=== PATIENT | female | born 1995 | race Caucasian/White ===

== ENCOUNTER → 2019-11-13 | Outpatient (CLI) | payer OTHER, BC ==
[2019-11-13 10:05] LABS: BASOPHILS % (AUTO) 0 % (0-10); EOSINOPHILS # (AUTO) 0.2 10^3/uL (0.0-0.3); EOSINOPHILS % (AUTO) 2 % (0-10); HEMATOCRIT 37 % (35-52); HEMOGLOBIN 12.4 G/DL (11.5-16.0); LYMPHOCYTES # (AUTO) 1.5 X 10^3 (1.0-4.0); LYMPHOCYTES % (AUTO) 15 % (12-44); MEAN CORPUSCULAR HEMOGLOBIN 31 PG (25-34); MEAN CORPUSCULAR HGB CONC 34 G/DL (32-36); MEAN CORPUSCULAR VOLUME 91 FL (80-99); MEAN PLATELET VOLUME 9.1 FL (7.4-10.4); MONOCYTES # (AUTO) 0.6 X 10^3 (0.0-1.0); MONOCYTES % (AUTO) 6 % (0-12); NEUTROPHILS # (AUTO) 7.5 X 10^3 (1.8-7.8); NEUTROPHILS % (AUTO) 75 % (42-75); PLATELET COUNT 224 10^3/uL (130-400); RED CELL DISTRIBUTION WIDTH 14.1 % (10.0-14.5)
== END ==
LOC: LAB FS 09:15
PROVIDERS: ATTEND Family Medicine
DX: O26.899 Other specified pregnancy related conditions, unspecified trimester (principal)
CPT/HCPCS: 36415; 85025; 86780; 86850

== ENCOUNTER → 2019-11-27 | Outpatient (CLI) | payer OTHER, BC | LOC: LAB FS 08:45 | PROVIDERS: ATTEND Family Medicine | DX: O99.280 Endocrine, nutritional and metabolic diseases complicating pregnancy, unspecified trimester (principal); E03.9 Hypothyroidism, unspecified | CPT/HCPCS: 36415; 82950; 84443 ==

== ENCOUNTER 2019-12-01 08:38 | Outpatient (CLI) | payer OTHER, BC ==
[~2019-12-01] VITALS: Ht 170.2 cm; Wt 73.3 kg
--- NOTE | 2019-12-01 08:40 | NUR ---
GERTRUDE BAHENA presented to unit via AMBULATORY from REGISTRATION, accompanied by MOTHER , with c/o CONTRACTIONS. GERTRUDE BAHENA weighed, gowned, voided, and to bed. EFHM and TOCO applied, VS taken. GERTRUDE BAHENA oriented to bed controls, call light, TV, heat, and A/C controls.
[2019-12-01 08:50] VITALS: BP 118/68
--- NOTE | 2019-12-01 09:19 | NUR ---
THIS RN CALLS DR WIN WITH PT REPORT. PRENATALS UNAVAILABLE. FROM PT REPORT: EDC 02/03/20 MAKES HER 30 WEEKS AND 6 DAYS. PT STATES SHE STARTED FEELING DULL ACHEY PAIN IN LOWER BACK A FEW DAYS AGO. STATES SHE WENT TO THE ER, PER PT REPORT, THEY RAN HER URINE AND STATED THAT ALL SHE HAD WERE KETONES. PT STATES SHE HAD A FEVER THE LAST 2 DAYS OVER 100 F. TODAY IT IS 98.6F UPON ARRIVAL. PT DENIES N/V/D. PT STATES PAIN BEGAN IN HER BACK AND LOWER ABDOMEN THIS MORNING AT 0515 THAT WERE INTENSE AND WOULD COME AND GO LIKE CONTRACTIONS THEREFORE PT CAME TO OB. PT HAS HAD OCCASIONAL UC PER TOCO SINCE ON MONITOR, WITH UTERINE IRRITABILITY. REACTIVE FHT. FEELING BABY MOVEMENT. PT STATES HER WATER INTAKE HAS BEEN POOR BECAUSE "WATER JUST HASNT TASTED GOOD THIS ". URINE DIPSTICK RESULTS READ TO DR WIN. RN HAS NOT COMPLETED SVE, WANTED TO SPEAK WITH DR SOLARES. RN HAS GIVEN THE PT WATER AND GIVEN INSTRUCTIONS TO HYDRATE. DR WIN ORDERS FOR URINALYSIS, BILAT RENAL US FOR POSSIBLE KIDNEY STONE, AND WANTS PT TO DRINK ATLEAST 1 L OF WATER WHILE IN OB - IF PT IS UNABLE TO DRINK WATER PO, THEN WE CAN DO IV FLUIDS. THIS RN HAS PLACED ORDERS AND UPDATED PT ON PLAN OF CARE.
--- NOTE | 2019-12-01 09:40 | NUR ---
US at bedside for bilat renal us for possible kidney stone evaluation
[2019-12-01 09:44] LABS: CLARITY,URINE SL CLOUDY; COLOR,URINE YELLOW; GLUCOSE, URINE (UA) NEGATIVE (NEGATIVE); KETONES,URINE 3+ (NEGATIVE); LEUKOCYTE ESTERASE ,URINE NEGATIVE (NEGATIVE); NITRITE,URINE NEGATIVE (NEGATIVE); PH,URINE 6.5 (5-9); PROTEIN,URINE 2+ (NEGATIVE)
[2019-12-01 10:02] LABS: BACTERIA,URINE NEGATIVE /HPF; BILIRUBIN,URINE 1+ (NEGATIVE); WBC,URINE RARE /HPF
--- NOTE | 2019-12-01 10:30 | NUR ---
DR WIN UPDATED ON URINALYSIS RESULTS. PT STATES FEELING ABOUT THE SAME CO SHARP CRAMPING PAIN LOWER ABDOMEN. OCCASIONAL UC MONITORED WITH TOCO, RN WILL READJUST TOCO TO MAKE SURE. PT STATES SHE HAS NOT EATEN TODAY AND WANTS TO TRY TO EAT, STATES SHE IS HAVING A HARD TIME DRINKING WATER. DR WIN ORDERS FOR RN TO GO AHEAD TO START IV AND GIVE IV FLUIDS.
[2019-12-01] MEDS: D5 LR IV SOLUTION 1,000 ML IV SCH ×2 (11:13→13:00)
--- NOTE | 2019-12-01 11:30 | NUR ---
dr jacobson updated on pt report. uc 3.5-6 min sve by this rn closed and thick. no new orders
[2019-12-01 13:36] LABS: BASOPHILS % (AUTO) 0 % (0-10); EOSINOPHILS % (AUTO) 0 % (0-10); HEMATOCRIT 33 % (35-52); HEMOGLOBIN 11.3 G/DL (11.5-16.0); LYMPHOCYTES % (AUTO) 9 % (12-44); MEAN CORPUSCULAR HEMOGLOBIN 31 PG (25-34); MEAN CORPUSCULAR HGB CONC 34 G/DL (32-36); MEAN CORPUSCULAR VOLUME 90 FL (80-99); MEAN PLATELET VOLUME 9.5 FL (7.4-10.4); MONOCYTES # (AUTO) 0.5 X 10^3 (0.0-1.0); MONOCYTES % (AUTO) 5 % (0-12); NEUTROPHILS # (AUTO) 10.1 X 10^3 (1.8-7.8); NEUTROPHILS % (AUTO) 87 % (42-75); PLATELET COUNT 197 10^3/uL (130-400); RED CELL DISTRIBUTION WIDTH 14.3 % (10.0-14.5); WHITE BLOOD COUNT 11.6 10^3/uL (4.3-11.0)
--- NOTE | 2019-12-01 13:40 | NUR ---
dr jacobson updated on pt report. Us results given to dr. LAO called US and tech stated that it has been dictated and shows bilateral hydronephrosis. cbc and cmp orders by dr jacobson.
[2019-12-01 13:51] LABS: BAND NEUTROPHILS 8 %; BASOPHILS % (MANUAL) 0 %; EOSINOPHILS % (MANUAL) 1 %; LYMPHOCYTES % (MANUAL) 8 %; MONOCYTES % (MANUAL) 4 %; NEUTROPHILS % (MANUAL) 79 %; RBC MORPH NORMAL
[2019-12-01 13:57] LABS: ALANINE AMINOTRANSFERASE 20 U/L (0-55); ALKALINE PHOSPHATASE 60 U/L (40-136); BILIRUBIN,TOTAL 0.3 MG/DL (0.1-1.0); BUN/CREATININE RATIO 5; CALCIUM 8.4 MG/DL (8.5-10.1); CARBON DIOXIDE 19 MMOL/L (21-32); CHLORIDE 108 MMOL/L (98-107); CREATININE SERUM 0.55 MG/DL (0.60-1.30); GFR ESTIMATED > 60; GLUCOSE 135 MG/DL (70-105); SODIUM 135 MMOL/L (135-145); TOTAL PROTEIN 5.6 GM/DL (6.4-8.2)
[2019-12-01] MEDS ORDERED: KCL 20 MEQ TAB (K-DUR) PO NR (14:07)
--- NOTE | 2019-12-01 14:45 | NUR ---
lab results given to dr jacobson. order receivd to admin KCl 40 meq once PO. pt states she feels better. uc spread out significantly, occasional uc now. states pt may dc to home. pt updated on plan. questions answered.
--- NOTE | 2019-12-01 15:00 | NUR ---
this rn gives and explains discharge instructions to pt. DC iv. questions answered.
--- NOTE | 2019-12-01 15:30 | Diagnostic Imaging Report ---
PROCEDURE: US Renal Bilateral. TECHNIQUE: Multiple real-time grayscale images were obtained over the kidneys in various projections bilaterally. INDICATION: Hematuria and abdominal pain. FINDINGS: Right kidney measures 11.1 x 4.1 x 5.3 cm and the left kidney measures 11.3 x 4.9 x 5.4 cm. Cortical thickness and echogenicity is normal bilaterally. Renal pelves are slightly prominent bilaterally. No hydronephrosis is identified. Bilateral ureteral jets are visualized. IMPRESSION: Prominent renal pelves bilaterally. The study is otherwise unremarkable. Dictated by: Dictated on workstation # [id number]
--- NOTE | 2019-12-02 08:38 | Physician Query-Final Dx ---
Clinic Account Progress/Dx Physician Query: Please give diagnosis Please include # weeks gestation Date of Service Dec 01, 2019 at 08:38 CARRIE JOHNSON Dec 02, 2019 08:37
== END 2019-12-01 15:00 | disposition home or self-care (01) ==
LOC: WSo 08:38 → LDRP 08:40 → WSo 15:00
PROVIDERS: ATTEND Family Medicine
DX: O62.9 Abnormality of forces of labor, unspecified (principal); O99.89 Other specified diseases and conditions complicating pregnancy, childbirth and the puerperium; R31.9 Hematuria, unspecified; Z3A.31 31 weeks gestation of pregnancy
CPT/HCPCS: 36415; 76770; 80053; 81000; 85007; 85027; 96360; 96361; 99213

== ENCOUNTER → 2020-01-09 | Outpatient (CLI) | payer OTHER, BC | LOC: LABNPT 14:38 | PROVIDERS: ATTEND Family Medicine | DX: Z34.80 Encounter for supervision of other normal pregnancy, unspecified trimester (principal); Z3A.00 Weeks of gestation of pregnancy not specified | CPT/HCPCS: 87081 ==

== ENCOUNTER 2020-01-27 05:50 | Inpatient (IN) | payer OTHER, BC ==
[2020-01-27] VITALS (25 sets, daily range): BP systolic 92–131; BP diastolic 54–82
[~2020-01-27] VITALS: Ht 170.2 cm; Wt 79.0 kg
--- OUTSIDE RECORDS SUMMARY | 2020-01-27 05:55 | XMS REPORT | Continuity of Care Document ---
Author Organization Unknown Address Unknown Phone Unavailable Allergies Active Description Code Type Severity Reaction Onset Reported/Identified Relationship to Patient Clinical Status Yes Sulfa (Sulfonamide Antibiotics) [id number] Drug Allergy Moderate Rash 2019 Medications There is no data. Problems Date Dx Coded Attending Type Code Diagnosis Diagnosed By 11/15/2019 MARTHA WIN MD, Ot O26.899 OTH RELATED CONDITIONS, UNSPEC 11/27/2019 MARTHA WIN MD, Ot O26.899 OTH RELATED CONDITIONS, UNSPEC 11/28/2019 MARTHA WIN MD, Ot E03 .9 HYPOTHYROIDISM, UNSPECIFIED 11/28/2019 MARTHA WIN MD Ot O99.280 ENDO, NUTRITIONAL AND METAB DISEASES COM 12/01/2019 MARTHA WIN MD Ot O62 .9 ABNORMALITY OF FORCES OF LABOR, UNSPECIF 12/01/2019 MARTHA WIN MD Ot O99.89 OTH DISEASES AND CONDITIONS COMPL PREG/C 12/01/2019 MARTHA WIN MD Ot R31 .9 HEMATURIA, UNSPECIFIED 12/01/2019 MARTHA WIN MD Ot Z3A.31 31 WEEKS GESTATION OF 12/03/2019 MARTHA WIN MD Ot O62 .9 ABNORMALITY OF FORCES OF LABOR, UNSPECIF 12/03/2019 MARTHA WIN MD Ot O99.89 OTH DISEASES AND CONDITIONS COMPL PREG/C 12/03/2019 MARTHA WIN MD Ot R31 .9 HEMATURIA, UNSPECIFIED 12/03/2019 MARTHA WIN MD Ot Z3A.31 31 WEEKS GESTATION OF 12/17/2019 MARTHA WIN MD Ot E03 .9 HYPOTHYROIDISM, UNSPECIFIED 12/17/2019 MARTHA WIN MD Ot O99.280 ENDO, NUTRITIONAL AND METAB DISEASES COM 12/25/2019 MARTHA WIN MD Ot E03 .9 HYPOTHYROIDISM, UNSPECIFIED 12/25/2019 MARTHA WIN MD, Ot O99.280 ENDO, NUTRITIONAL AND METAB DISEASES COM 01/16/2020 AUDELIA SOLORIO MARTHAMICHELE Neely Ot Z34.80 ENCOUNTER FOR SUPRVSN OF NORMAL PREGNANC 01/16/2020 AUDELIA SOLORIO MARTHAMICHELE Neely Ot Z3A.00 WEEKS OF GESTATION OF NOT SPEC 01/23/2020 MARTHA WIN MD, Ot Z34.80 ENCOUNTER FOR SUPRVSN OF NORMAL PREGNANC 01/23/2020 MARTHA WIN MD, Ot Z3A.00 WEEKS OF GESTATION OF NOT SPEC Procedures There is no data. Results Test Result Range TSH w/ FREE T4 - 02/12/19 10:00 TSH 8.03 mIU/L NRG T4, FREE 0.9 ng/dL 0.8-1.8 TSH - 03/25/19 09:35 TSH 5.89 mIU/L NRG TSH - 05/08/19 00:00 TSH 2.87 mIU/L NRG CBC - 06/16/19 11:04 WHITE BLOOD CELL COUNT 8.4 Thousand/uL 3 .8-10.8 RED BLOOD CELL COUNT 4.32 Million/uL 3.8 0-5.10 HEMOGLOBIN 13.0 g/dL 11.7-15.5 HEMATOCRIT 38.9 % 35.0-45.0 MCV 90.0 fL 80.0-100.0 MCH 30.1 pg 27.0-33.0 MCHC 33.4 g/dL 32.0-36.0 RDW 12.8 % 11.0-15.0 PLATELET COUNT 288 Thousand/uL 140-400 MPV 9.4 fL 7.5-12.5 ABSOLUTE NEUTROPHILS 5258 cells/uL 1500- 7800 ABSOLUTE LYMPHOCYTES 2008 cells/uL 850-3 900 ABSOLUTE MONOCYTES 756 cells/uL 200-950 ABSOLUTE EOSINOPHILS 336 cells/uL 15-500 ABSOLUTE BASOPHILS 42 cells/uL 0-200 NEUTROPHILS 62.6 % NRG LYMPHOCYTES 23.9 % NRG MONOCYTES 9.0 % NRG EOSINOPHILS 4.0 % NRG BASOPHILS 0.5 % NRG BLOOD TPYE/RH FACTOR - 06/16/19 11:04 ABO GROUP A NRG RH TYPE RH(D) NEGATIVE NRG ANTIBODY SCREEN - 06/16/19 11:04 ANTIBODY SCREEN, RBC W/REFL ID, TITER AND AG NO ANTIBODIES DETECTED NRG SYPHILIS (RPR W/ REFLEX CONFIRMATION) - 06/16/19 11:04 RPR (DX) W/REFL TITER AND CONFIRMATORY TESTING NON-REACTIVE NON-REACTIVE HEP B SURFACE ANTIGEN - 06/16/19 11:04 HEPATITIS B SURFACE ANTIGEN NON-REACTIVE NON-REACTIVE TSH - 06/16/19 11:04 TSH 4.25 mIU/L NRG CULTURE, URINE - 06/16/19 11:04 CULTURE, URINE, ROUTINE SEE NOTE NRG GC/CHLAMYDIA (SWAB OR URINE)-RAPID - 14:55 CHLAMYDIA TRACHOMATIS RNA, TMA NOT DETECTED NOT DETECTED NEISSERIA GONORRHOEAE RNA, TMA NOT DETECTED NOT DETECTED COMMENT NRG Complete blood count (CBC) with automate d white blood cell (WBC) differential - 11/13/19 09:53 Blood leukocytes automated count (number/volume) 10.0 10*3/uL 4.3-11.0 Blood erythrocytes automated count (number/volume) 4.05 10*6/uL 4.35-5.85 Venous blood hemoglobin measurement (mass/volume) 12.4 g/dL 11.5-16.0 Blood hematocrit (volume fraction) 37 % 35-52 Automated erythrocyte mean corpuscular volume 91 [ foz_us] 80-99 Automated erythrocyte mean corpuscular h emoglobin (mass per erythrocyte) 31 pg 25-34 Automated erythrocyte mean corpuscular h emoglobin concentration measurement (mass/volume) 34 g/dL 32-36 Automated erythrocyte distribution width ratio 14. 1 % 10.0- 14.5 Automated blood platelet count (count/volume) 224 10*3/uL 130-400 Automated blood platelet mean volume measurement 9.1 [foz_us] 7.4-10.4 Automated blood neutrophils/100 leukocytes 75 % 42-75 Automated blood lymphocytes/100 leukocytes 15 % 12-44 Blood monocytes/100 leukocytes 6 % 0-12 Automated blood eosinophils/100 leukocytes 2 % 0-10 Automated blood basophils/100 leukocytes 0 % 0-10 Blood neutrophils automated count (number/volume) 7.5 10*3 1.8-7.8 Blood lymphocytes automated count (number/volume) 1.5 10*3 1.0-4.0 Blood monocytes automated count (number/volume) 0. 6 10*3 0.0-1.0 Automated eosinophil count 0.2 10*3/uL 0 .0-0.3 Automated blood basophil count (count/volume) 0.0 10*3/uL 0.0-0.1 Blood group antibody screen - 11/13/19 0 9:53 Blood group antibody screen NEGATIVE NR G Serum reagin antibody assay (units/volum e) by RPR - 11/13/19 09:53 Serum reagin antibody assay (units/volume) by RPR Non-Reactive Non-Reactive Complete urinalysis with reflex to cultu re - 12/01/19 09:00 Urine color determination YELLOW NRG Urine clarity determination SL CLOUDY N RG Urine pH measurement by test strip 6.5 5-9 Specific gravity of urine by test strip 1.025 1.016-1.022 Urine protein assay by test strip, semi-quantitative 2+ NEGATIVE Urine glucose detection by automated test strip NE GATIVE NEGATIVE Erythrocytes detection in urine sediment by light micr oscopy TRACE-I NEGATIVE Urine ketones detection by automated test strip 3+ NEGATIVE Urine nitrite detection by test strip NEGATIVE NEGATIVE Urine total bilirubin detection by test strip 1+ NEGATIVE Urine urobilinogen measurement by automated test strip (mass/volume) 1.0 mg/dL < = 1.0 Urine leukocyte esterase detection by dipstick NEG ATIVE NEGATIVE Automated urine sediment erythrocyte cou nt by microscopy (number/high power field) [HPF] NRG Automated urine sediment leukocyte count by microscopy (number/high power field) RARE NRG Bacteria detection in urine sediment by light microsco py NEGATIVE NRG Squamous epithelial cells detection in u rine sediment by light microscopy 2-5 NRG Crystals detection in urine sediment by light microsco py NONE NRG Casts detection in urine sediment by light microscopy NONE NRG Mucus detection in urine sediment by light microscopy MODERATE NRG Complete urinalysis with reflex to culture NO NRG Blood CBC with ordered manual differenti al panel - 12/01/19 13:25 Blood leukocytes automated count (number/volume) 11.6 10*3/uL 4.3-11.0 Blood erythrocytes automated count (number/volume) 3.71 10*6/uL 4.35-5.85 Venous blood hemoglobin measurement (mass/volume) 11.3 g/dL 11.5-16.0 Blood hematocrit (volume fraction) 33 % 35-52 Automated erythrocyte mean corpuscular volume 90 [ foz_us] 80-99 Automated erythrocyte mean corpuscular h emoglobin (mass per erythrocyte) 31 pg 25-34 Automated erythrocyte mean corpuscular h emoglobin concentration measurement (mass/volume) 34 g/dL 32-36 Automated erythrocyte distribution width ratio 14. 3 % 10.0- 14.5 Automated blood platelet count (count/volume) 197 10*3/uL 130-400 Automated blood platelet mean volume measurement 9.5 [foz_us] 7.4-10.4 Automated blood neutrophils/100 leukocytes 87 % 42-75 Automated blood lymphocytes/100 leukocytes 9 % 12-44 Blood monocytes/100 leukocytes 4 % NRG Automated blood eosinophils/100 leukocytes 0 % 0-10 Automated blood basophils/100 leukocytes 0 % 0-10 Blood neutrophils automated count (number/volume) 10.1 10*3 1.8-7.8 Blood lymphocytes automated count (number/volume) 1.0 10*3 1.0-4.0 Blood monocytes automated count (number/volume) 0. 5 10*3 0.0-1.0 Automated eosinophil count 0.0 10*3/uL 0 .0-0.3 Automated blood basophil count (count/volume) 0.0 10*3/uL 0.0-0.1 Manual blood segmented neutrophils/100 leukocytes 79 % NRG Blood band neutrophils/100 leukocytes 8 % NRG Manual blood lymphocytes/100 leukocytes 8 % NRG Manual eosinophils/100 leukocytes in nose 1 % NRG Manual blood basophils/100 leukocytes 0 % NRG Blood erythrocyte morphology finding identification N[facility]AL [facility] Comprehensive metabolic panel - 12/01/19 13:25 Serum or plasma sodium measurement (moles/volume) 135 mmol/L 135-145 Serum or plasma potassium measurement (moles/volume) 3.0 mmol/L 3.6-5.0 Serum or plasma chloride measurement (moles/volume) 108 mmol/L 98-107 Carbon dioxide 19 mmol/L 21-32 Serum or plasma anion gap determination (moles/volume) 8 mmol/L 5-14 Serum or plasma urea nitrogen measurement (mass/volume ) 3 mg/dL 7-18 Serum or plasma creatinine measurement (mass/volume) 0.55 mg/dL 0.60-1.30 Serum or plasma urea nitrogen/creatinine mass ratio 5 NRG Serum or plasma creatinine measurement w ith calculation of estimated glomerular filtration rate > NRG Serum or plasma glucose measurement (mass/volume) 135 mg/dL 70-105 Serum or plasma calcium measurement (mass/volume) 8.4 mg/dL 8.5-10.1 Serum or plasma total bilirubin measurement (mass/volu me) 0.3 mg/dL 0.1-1.0 Serum or plasma alkaline phosphatase maximo surement (enzymatic activity/volume) 60 U/L 40-136 Serum or plasma aspartate aminotransfera se measurement (enzymatic activity/volume) 18 U/L 5-34 Serum or plasma alanine aminotransferase measurement (enzymatic activity/volume) 20 U/L 0-55 Serum or plasma protein measurement (mass/volume) 5.6 g/dL 6.4-8.2 Serum or plasma albumin measurement (mass/volume) 3.0 g/dL 3.2-4.5 CALCIUM CORRECTED 9.2 mg/dL 8.5-10.1 [id number] - 12/01/19 13:25 [id number] SPECIMEN AVAILABLE NRG Encounters ACCT No. Visit Date/Time Discharge Status Pt. Type Provider Facility Loc./Unit Complaint [id number] 09/30/2019 10:00:00 09/30/2019 23:59: 59 CLS Outpatient MARTHA WIN [facility] [id number] 07/14/2019 14:20:00 Document Registration [id number] 2019 14:20:00 Document Registration [id number] 05/08/2019 11:00:00 Document Registration [id number] 03/25/2019 09:30:00 Document Registration [id number] 02/12/2019 09:45:00 Document Registration [id number] 01/09/2020 14:38:00 23:59:59 CLS Outpatient MARTHA WIN MD [facility] LABNPT Z34.80 [id number] 12/01/2019 08:38:00 15:00:00 DIS Outpatient MARTHA WIN MD [facility] WSo CONTRACTIONS [id number] 11/27/2019 08:45:00 23:59:59 CLS Outpatient MARTHA WIN MD [facility] LAB FS E03.9 Z34.80 [id number] 11/13/2019 09:15:00 020 23:59:59 CLS Outpatient AUDELIA SOLORIO, MARTHA Neely [facility] LAB FS Z36.9 O26.889 [id number] 01/27/2020 06:00:00 P EN Preadmit AUDELIA SOLORIO, MARTHA SPENCE
--- NOTE | 2020-01-27 06:00 | NUR ---
GERTRUDE BAHENA presented to unit via AMBULATION from ED, accompanied by S/O/ BOTH WEARING MEDICAL FACE MASKS, with c/o INDUCTION. GERTRUDE BAHENA weighed, gowned, voided, and to bed. EFHM and TOCO applied, VS taken. GERTRUDE BAHENA oriented to bed controls, call light, TV, heat, and A/C controls.
[2020-01-27] MEDS ORDERED: D5 LR IV SOLUTION 1,000 ML IV ONE (06:26)
[2020-01-27] MEDS ORDERED: D5 LR IV SOLUTION 1,000 ML IV SCH (06:41)
[2020-01-27] MEDS ORDERED: MINERAL OIL CONCENTRATE 99.9% 15 ML UDC TOP PRN (06:45)
[2020-01-27 06:51] LABS: BASOPHILS % (AUTO) 0 % (0-10); EOSINOPHILS # (AUTO) 0.1 10^3/uL (0.0-0.3); EOSINOPHILS % (AUTO) 1 % (0-10); HEMATOCRIT 37 % (35-52); HEMOGLOBIN 12.7 G/DL (11.5-16.0); LYMPHOCYTES # (AUTO) 1.8 X 10^3 (1.0-4.0); LYMPHOCYTES % (AUTO) 20 % (12-44); MEAN CORPUSCULAR HEMOGLOBIN 30 PG (25-34); MEAN CORPUSCULAR HGB CONC 34 G/DL (32-36); MEAN CORPUSCULAR VOLUME 88 FL (80-99); MEAN PLATELET VOLUME 10.4 FL (7.4-10.4); MONOCYTES # (AUTO) 0.8 X 10^3 (0.0-1.0); MONOCYTES % (AUTO) 9 % (0-12); NEUTROPHILS # (AUTO) 6.7 X 10^3 (1.8-7.8); NEUTROPHILS % (AUTO) 71 % (42-75); PLATELET COUNT 233 10^3/uL (130-400); RED CELL DISTRIBUTION WIDTH 14.8 % (10.0-14.5); WHITE BLOOD COUNT 9.5 10^3/uL (4.3-11.0)
--- NOTE | 2020-01-27 07:28 | NUR ---
Dr Oconnell called, orders for pitocin rec'd. Plan for Dr. Beckett to come AROM pt.
[2020-01-27] MEDS ORDERED: OXYTOCIN PRE-MIX DRIP 500 ML IV SCH (07:30)
[2020-01-27] MEDS ORDERED: fentaNYL 2 mcg/ml BUPIVA 0.125 100 ML ONE (08:32)
--- NOTE | 2020-01-27 08:36 | NUR ---
Alisia Parry CRNA here for epidural placement. Procedure explained, consent reviewed and signed by anesthesia. Questions answered to patient's satisfaction. Time out taken to verify correct patient/procedure. Patient up to side of bed, assisted into sitting position. Betadine prep done x3 and sterile drape applied. Local done, see anesthesia record. Test dose given, see anesthesia record for drug and dosage. Epidural catheter secured in place. Epidural placement complete. Assisted back into bed, monitors adjusted. Epidural dosed, see anesthesia record. Epidural of Sufenta/Bupvicaine @12cc/hr stated per pump. Patient tolerated procedure well.
[2020-01-27] MEDS ORDERED: LIDOCAINE PF 2% 5 ML (XYLOCAINE) VIAL ONE (08:49)
[2020-01-27] MEDS ORDERED: fentaNYL INJECTION 100 MCG/2 ML AMP ONE (08:49)
[2020-01-27] MEDS ORDERED: BUPIVACAINE 0.25% 30 ML (SENSORCAINE) VIAL ONE (08:49)
[2020-01-27] MEDS ORDERED: LACTATED RINGERS 1,000 ML IV SCH (09:18)
[2020-01-27] MEDS ORDERED: EPIDURAL (fentaNYL 2 MCG/ML BUPIVA 0.125%)100 ML BAG EPI PRN (09:30)
[2020-01-27] MEDS ORDERED: diphenhydrAMINE 50 MG/ML INJ (BENADRYL) IV PRN (09:30)
[2020-01-27] MEDS ORDERED: ONDANSETRON 4 MG/2 ML (SDV) Z0FRAN IV PRN (09:30)
[2020-01-27] MEDS ORDERED: NALOXONE 0.4 MG/ML 1 ML (NARCAN) VIAL IV PRN (09:30)
[2020-01-27] MEDS ORDERED: LIDOCAINE/EPI 2% 1:200,00 (XYLOCAINE) 10 ML VIAL ONE (10:26)
--- NOTE | 2020-01-27 10:28 | History & Physical-OB ---
OB - Chief Complaint & HPI Date/Time Date of Admission: Date of Admission: Jan 27, 2020 at 05:50 Date seen by a Provider: Jan 27, 2020 Time Seen by a Provider: 10:26 Chief Complaint/History OB-Reason for Admission/Chief: Induction of Labor Hx : 2 Hx Para: 1 Expected Date of Delivery: Feb 03, 2020 Gestational Age in Weeks: 39 Gestational Age in Days: 0 Admission Nurse Assessment Rev: Yes Allergies and Home Medications Allergies Coded Allergies: Sulfa (Sulfonamide Antibiotics) (Verified Allergy, Intermediate, Rash, 12/01/19) Home Medications No Active Prescriptions or Reported Meds Patient Home Medication List Home Medication List Reviewed: Yes OB - History Hx of Present Ultrasounds: Normal mid trimester US Obstetrical Complications: None Medical Complications: None Delivery History Adverse Rxn to Tranfusion: No (n/a) Patient Past Medical History hypothyroidism Social History/Family History HIV/AIDS: No Recent Infectious Disease Expo: No Sexually Transmitted Disease: No Alcohol Use: Denies Use Recreational Drug Use: No 2nd Hand Smoke Exposure: No Immunizations Hepatitis A: Yes Hepatitis B: Yes Date of Influenza Vaccine: Aug 18, 2019 OB - Admission Exam Physical Exam Vitals: Vital Signs 01/27/20 06:59 Temp 36.8 Pulse 78 Resp 18 B/P (MAP) 107/75 (86) O2 Delivery Room Air HEENT: NCAT Heart: Rhythm Normal Lungs: Clear Abdomen: Gravid Extremities: Normal Reflexes: Normal Cervical Dilatation: 7cm Effacement: 100% Station: -3 Membranes: Ruptured Amniotic Fluid: Clear Heart Rate: 130's Accelerations: Accelerations Present Decelerations: Early Decelerations Short Term Variability: Present Longterm Variability: Average (6-25) Contractions on Admission: < 5 Minutes Apart Labs Laboratory Tests Test 01/27/20 06:25 Range/Units White Blood Count 9.5 4.3-11.0 10^3/uL Red Blood Count 4.25 L 4.35-5.85 10^6/uL Hemoglobin 12.7 11.5-16.0 G/DL Hematocrit 37 35-52 % Mean Corpuscular Volume 88 80-99 FL Mean Corpuscular Hemoglobin 30 25-34 PG Mean Corpuscular Hemoglobin Concent 34 32-36 G/DL Red Cell Distribution Width 14.8 H 10.0-14.5 % Platelet Count 233 130-400 10^3/uL Mean Platelet Volume 10.4 7.4-10.4 FL Neutrophils (%) (Auto) 71 42-75 % Lymphocytes (%) (Auto) 20 12-44 % Monocytes (%) (Auto) 9 0-12 % Eosinophils (%) (Auto) 1 0-10 % Basophils (%) (Auto) 0 0-10 % Neutrophils # (Auto) 6.7 1.8-7.8 X 10^3 Lymphocytes # (Auto) 1.8 1.0-4.0 X 10^3 Monocytes # (Auto) 0.8 0.0-1.0 X 10^3 Eosinophils # (Auto) 0.1 0.0-0.3 10^3/uL Basophils # (Auto) 0.0 0.0-0.1 10^3/uL OB - Assessment/Plan/Diagnosis Assessment Assessment: induction of labor Admission Dx Elective induction of labor at 39 0/7 wga. Admission Status: Inpatient Order (span 2 midnights) Reason for Inpatient Admission: Induction of labor. Plan Induction Method: per Pitocin Protocol Other Plan Pain controlled with epidural. GBS negative. MARTHA WIN MD Jan 27, 2020 10:28
[2020-01-27] MEDS ORDERED: WITCH HAZEL(TUCKS) 40 EA JAR TOP PRN (11:15)
[2020-01-27] MEDS ORDERED: MEASLES,MUMPS,RUBELLA 1 EA INJ SQ ONE (11:15)
[2020-01-27] MEDS ORDERED: TETANUS,DIPTH,PERTUSS P/F (BOOSTRIX) 0.5 ML VIAL IM ONE (11:15)
[2020-01-27] MEDS ORDERED: BENZOCAINE/MENTHOL (DERMOPLAST) 60 ML CAN TP PRN (11:15)
--- NOTE | 2020-01-27 11:28 | OB Labor & Delivery Record ---
Vag Delivery Note Vag Delivery Note Date of Delivery: 01/27/20 Preoperative Diagnosis: Tracy Donovan is a (24 /Para 2 / 1, Gestational Age (wks)39with [0 days] Postoperative Diagnosis: Same Surgeon: MARTHA WIN Candy Waffle Assembler: [none] Anesthesia: [epidural] Delivery Type: [] Findings: [] Viable [female] infant, apgars [8/9], weight [7 pounds 3 ounces] Lacerations: Intact placenta with 3 vessel cord. Nuchal cord times 1. Estimated Blood Loss: [200] ml Complications: None Condition: Stable Description of Procedure: The patient is a 24 year old female who presented [for induction of labor]. She was admitted and informed consent was obtained. Her labor course was remarkable for [nothing] She progressed to complete dilatation and began to push. She was then set up for delivery. The 's head was delivered atraumatically in the [OA] position. The shoulders and remainder of the infant's body were then delivered without difficulty. Upon delivery, the head was held below the level of the perineum and the mouth and nares were bulb suctioned. The cord was doubly clamped and cut after 60 seconds by father of baby on maternal abdomen. An intact placenta with 3-vessel cord delivered via Destiny and there was found to be minimal bleeding.~ Vigorous fundal massage was performed and the fundus was found to be firm. IV oxytocin was given. Examination of the vagina and perineum revealed no lacerations. Following the repair, sponge, instrument and needle counts were correct. Mom and baby were both in stable condition in the labor suite. Vitals - Labs Vital Signs - I&O Vital Signs Date Time Temp Pulse Resp B/P (MAP) Pulse Ox O2 Delivery O2 Flow Rate FiO2 01/27/20 06:59 36.8 78 18 107/75 (86) Room Air Labs Laboratory Tests 01/27/20 06:25: White Blood Count 9.5, Red Blood Count 4.25L, Hemoglobin 12.7, Hematocrit 37, Mean Corpuscular Volume 88, Mean Corpuscular Hemoglobin 30, Mean Corpuscular Hemoglobin Concent 34, Red Cell Distribution Width 14.8H, Platelet Count 233, Mean Platelet Volume 10.4, Neutrophils (%) (Auto) 71, Lymphocytes (%) (Auto) 20, Monocytes (%) (Auto) 9, Eosinophils (%) (Auto) 1, Basophils (%) (Auto) 0, Neutrophils # (Auto) 6.7, Lymphocytes # (Auto) 1.8, Monocytes # (Auto) 0.8, Eosinophils # (Auto) 0.1, Basophils # (Auto) 0.0 MARTHA WIN MD Jan 27, 2020 11:28
[2020-01-27] MEDS: OXYTOCIN PRE-MIX DRIP 500 ML IV SCH ×2 (11:31→15:56)
--- NOTE | 2020-01-27 11:31 | Anesthesia-General Post-Op ---
MAC Patient Condition Mental Status/LOC: Same as Preop Cardiovascular: Satisfactory Nausea/Vomiting: Absent Respiratory: Satisfactory Pain: Controlled Complications: Absent Post Op Complications Complications None Follow Up Care/Instructions Patient Instructions None needed. Anesthesiology Discharge Order Discharge Order Patient is doing well, no complaints, stable vital signs, no apparent adverse anesthesia problems. No complications reported per nursing. MICHAEL ROMAN CRNA Jan 27, 2020 11:31
[2020-01-27] MEDS: IBUPROFEN 600 MG (MOTRIN) TAB PO SCH ×2 (12:25→18:46)
[2020-01-27] MEDS ORDERED: PREN-148 PO (12:40)
[2020-01-27] MEDS ORDERED: LEVO88TA54 PO (12:40)
[2020-01-27] MEDS ORDERED: CATHETER FLUSH 10 ML SYR IV SCH ×2 (14:00)
--- NOTE | 2020-01-27 14:25 | NUR ---
Pt assisted up to bathroom per Beth Brown RN, +void. Pericare performed, fresh gown on. Pt assisted to wheelchair and to room 310 accompanied by RN, S.O., and . All personal belongings moved over with pt. Pt oriented to room and call light. packet explained. Pt denies needs or concerns at this time.
[2020-01-27] MEDS: ACETAMINOPHEN 500 MG TAB (TYLENOL) PO SCH ×2 (16:38→23:12)
[2020-01-27] MEDS: DOCUSATE SODIUM 100 MG (COLACE) CAP PO SCH (19:43)
[2020-01-28 02:02] VITALS: BP 106/66
[2020-01-28] MEDS: IBUPROFEN 600 MG (MOTRIN) TAB PO SCH ×2 (02:03→09:49)
[2020-01-28] MEDS: ACETAMINOPHEN 500 MG TAB (TYLENOL) PO SCH ×2 (04:43→12:02)
[2020-01-28 05:59] LABS: BASOPHILS % (AUTO) 0 % (0-10); EOSINOPHILS # (AUTO) 0.2 10^3/uL (0.0-0.3); EOSINOPHILS % (AUTO) 1 % (0-10); HEMATOCRIT 35 % (35-52); HEMOGLOBIN 11.7 G/DL (11.5-16.0); LYMPHOCYTES # (AUTO) 2.3 X 10^3 (1.0-4.0); LYMPHOCYTES % (AUTO) 20 % (12-44); MEAN CORPUSCULAR HEMOGLOBIN 30 PG (25-34); MEAN CORPUSCULAR HGB CONC 34 G/DL (32-36); MEAN CORPUSCULAR VOLUME 90 FL (80-99); MEAN PLATELET VOLUME 10.7 FL (7.4-10.4); MONOCYTES % (AUTO) 9 % (0-12); NEUTROPHILS # (AUTO) 7.9 X 10^3 (1.8-7.8); NEUTROPHILS % (AUTO) 70 % (42-75); PLATELET COUNT 192 10^3/uL (130-400); RED CELL DISTRIBUTION WIDTH 14.8 % (10.0-14.5); WHITE BLOOD COUNT 11.3 10^3/uL (4.3-11.0)
[2020-01-28 06:33] VITALS: BP 114/69
--- NOTE | 2020-01-28 07:32 | Anesthesia-Regional Post-Op ---
Regional Patient Condition Mental Status: Alert, Oriented x3 Circulation: Same as Pre-Op Headache: Absent Sensation: Full Recovery Motor Block: Absent Post Op Complications Complications None Follow Up Care/Instructions Patient Instructions None needed. Anesthesia/Patient Condition Patient is doing well, no complaints, stable vital signs, no apparent adverse anesthesia problems. No complications reported per nursing. JOVANY SHERWOOD CRNA Jan 28, 2020 07:32
--- NOTE | 2020-01-28 08:15 | NUR ---
SLEEPING WHEN ENTERED ROOM. SPOUSE REQUESTS NOT TO AWAKEN PT.
[2020-01-28 09:00] VITALS: BP 101/65
--- NOTE | 2020-01-28 09:15 | NUR ---
A.M. ASSESSMENT COMPLETED. VSS. CARING FOR IN ROOM. WELL. GOOD INTERACTION NOTED.
[2020-01-28] MEDS: DOCUSATE SODIUM 100 MG (COLACE) CAP PO SCH (09:49)
--- NOTE | 2020-01-28 11:00 | NUR ---
DR. WIN HERE TO SEE PT. PLAN FOR DISCHARGE.
--- NOTE | 2020-01-28 11:11 | Discharge Summary ---
Discharge Inst-[facility] Reconcile Patient Problems Problems Reviewed?: Yes Depart Medications New, Converted or Re-Newed RX: Other (none given- OTC) Follow Up/Instructions Goal/Follow Up: Dr. Win in 6 weeks. Activity Activity: Activity as Tolerated Driving Instructions: You May Drive NO SMOKING: NO SMOKING Nothing Inside Vagina: No Douching, No Hiram, No Tampons Diet Discharge Diet: No Restrictions Symptoms to Report to : Bleeding Excessive, Fever Over 101 Degrees F MARTHA WIN MD Jan 28, 2020 11:11
--- NOTE | 2020-01-28 11:14 | Discharge Summary ---
Diagnosis/Chief Complaint Date of Admission Jan 27, 2020 at 05:50 Date of Discharge January 28, 2020 Admission Diagnosis Admission Diagnosis Term induction of labor. Discharge Diagnosis Vaginal delivery at 39 0/7 wga. Problems/Diagnosis: (1) care following vaginal delivery Assessment & Plan: Patient's post- course was uneventful. Her bleeding was minimal and pain was controlled. She is nursing. Discharge Summary-OBS Procedures None. Discharge Physical Examination Allergies: Coded Allergies: Sulfa (Sulfonamide Antibiotics) (Verified Allergy, Intermediate, Rash, 12/01/19) Vitals & I&Os Intake and Output 01/28/20 00:00 Intake Total 500 ml Balance 500 ml Vital Sign - Last 12Hours Date Time Temp Pulse Resp B/P (MAP) Pulse Ox O2 Delivery O2 Flow Rate FiO2 01/28/20 06:33 36.7 58 16 114/69 (84) 98 Room Air General Appearance: Alert, Oriented X3 HEENT: Atraumatic Cardiovascular: Regular Rate Abdominal: Other (fundus firm below umbilicus) Extremities: No Edema Skin: No Rashes Psych/Mental Status: Mental Status NL Hospital Course Was the Problem List Reviewed?: Yes Uneventful. Labs Laboratory Tests 01/28/20 05:22: White Blood Count 11.3H, Red Blood Count 3.85L, Hemoglobin 11.7, Hematocrit 35, Mean Corpuscular Volume 90, Mean Corpuscular Hemoglobin 30, Mean Corpuscular Hemoglobin Concent 34, Red Cell Distribution Width 14.8H, Platelet Count 192, Mean Platelet Volume 10.7H, Neutrophils (%) (Auto) 70, Lymphocytes (%) (Auto) 20, Monocytes (%) (Auto) 9, Eosinophils (%) (Auto) 1, Basophils (%) (Auto) 0, Neutrophils # (Auto) 7.9H, Lymphocytes # (Auto) 2.3, Monocytes # (Auto) 1.0, Eosinophils # (Auto) 0.2, Basophils # (Auto) 0.0 Discharge Instructions to patient/family Please see electronic discharge instructions given to patient. Discharge Medications Reviewed and agree with Discharge Medication list on patient's Discharge Instruction sheet Clinical Quality Measures DVT/VTE Risk/Contraindication: Risk Factor Score Per Nursin RFS Level Per Nursing on Admit: 1=Low/No VTE PPX MARTHA WIN MD Jan 28, 2020 11:14
--- NOTE | 2020-01-28 12:57 | NUR ---
RUBELLA TITER ORDER RECEIVED R/T PT NOT HAVING ONE. DR. WIN WILL GIVE MMR IF NEEDED AN OUTPT.
--- NOTE | 2020-01-28 13:25 | NUR ---
DISCHARGE INSTRUCTIONS REVIEWED WITH COPY TO PT. STATES UNDERSTANDING OF ALL INSTRUCTIONS AND NEED TO F/U SCHEDULED AND NEEDED.
[2020-01-28 13:30] VITALS: BP 108/69
[2020-01-28 13:50] VITALS: BP 108/69
--- NOTE | 2020-01-28 13:50 | NUR ---
DISMISSED AMB FROM [facility] WITH INFANT IN STABLE CONDITION TO [facility]ILY [facility] BY SPOUSE AND JUSTINO MONTERO RN.
== END 2020-01-28 13:50 | disposition home or self-care (01) | DRG 807 ==
LOC: LDRP 05:50
PROVIDERS: ADMIT Family Medicine; ATTEND Family Medicine
PROC: 10E0XZZ Delivery of Products of Conception, External Approach (ICD-10-PCS; principal; 2020-01-27)
PROC: 3E033VJ Introduction of Other Hormone into Peripheral Vein, Percutaneous Approach (ICD-10-PCS; 2020-01-27)
DX: O69.81X0 Labor and delivery complicated by cord around neck, without compression, not applicable or unspecified (principal); Z37.0 Single live birth; Z3A.39 39 weeks gestation of pregnancy
CPT/HCPCS: 36415; 85025; 86762; 86850; 86900; 86901

== ENCOUNTER → 2020-03-10 | Outpatient (CLI) | payer OTHER, BC ==
[~2020-03-10] MED LIST: LEVO88TA54 PO; PREN-148 PO
== END ==
LOC: LAB FS 10:30
PROVIDERS: ATTEND Family Medicine
DX: E03.9 Hypothyroidism, unspecified (principal)
CPT/HCPCS: 36415; 84443

== ENCOUNTER → 2020-05-14 | Outpatient (CLI) | payer OTHER, BC | LOC: LAB FS 11:02 | PROVIDERS: ATTEND Family Medicine | DX: E03.9 Hypothyroidism, unspecified (principal) | CPT/HCPCS: 36415; 84443 ==

== ENCOUNTER → 2021-02-22 | Outpatient (CLI) | payer OTHER, BC ==
--- NOTE | 2021-02-22 11:30 | Diagnostic Imaging Report ---
INDICATION: PROCEDURE: Ultrasound abdomen complete. TECHNIQUE: Multiple real-time grayscale images were obtained of the abdomen in various projections. INDICATION: Nausea x3 months. FINDINGS: Liver parenchyma appears normal. Liver is not enlarged measuring 15 cm. Bile ducts are not dilated. Common duct measures 3 mm. Gallbladder appears normal with no evidence of gallstones or wall thickening. No pericholecystic fluid. The aorta, vena cava and portal vein appear normal with Doppler sampling. Spleen is normal measuring 10 cm. Right kidney measures 10 x 4.3 x 5.4 cm. The left kidney measures 10 x 5 x 5 cm. No hydronephrosis or calculi. No ascites. IMPRESSION: Normal abdominal ultrasound. Dictated by: Dictated on workstation # [id number]
== END ==
LOC: RAD 09:27
PROVIDERS: ATTEND Family Medicine
DX: R11.0 Nausea (principal)
CPT/HCPCS: 76700

== ENCOUNTER → 2021-06-02 | Outpatient (CLI) | payer OTHER | LOC: LABNPT 14:55 | PROVIDERS: ATTEND Family Medicine | DX: Z34.81 Encounter for supervision of other normal pregnancy, first trimester (principal); Z3A.00 Weeks of gestation of pregnancy not specified | CPT/HCPCS: 87210; 87491; 87591 ==

== ENCOUNTER 2021-06-23 20:24 | Emergency (ER) | payer OTHER ==
[~2021-06-23] VITALS: Ht 170 cm; Wt 58.0 kg
--- NOTE | 2021-06-23 20:40 | ED GU-Female ---
General Chief Complaint: Female Reproductive Stated Complaint: CONTRACTIONS Source: patient History of Present Illness Date Seen by Provider: Jun 23, 2021 Time Seen by Provider: 20:30 Initial Comments PT ARRIVES VIA POV FROM HOME STATES SHE IS 15 WEEKS AND HAVING CONTRACTIONS STATES THE CRAMPING/CONTRACTIONS BEGAN AROUND NOON TODAY, AND ON THE WAY HERE WERE EVERY 10-12 MINUTES NO VAGINAL BLEEDING OR FLUID LEAKAGE OR DISCHARGE HAS HAD NAUSEA AND VOMITED X 4 TODAY, HAS HAD DIARRHEA X 2 TODAY NO FEVER NO URINARY SYMPTOMS CALLED DR. WIN'S OFFICE TODAY, WAS TOLD SHE COULD BE SEEN IN OFFICE TOMORROW --HAS AN APPOINTMENT TOMORROW, IF WORSE SHE WAS TO GO TO HOSPITAL. PT HAD COVID IN [facility], NO TREATMENT OR HOSPITALIZATION PRIOR DELIVERY 01/27/20 PT IS AB 2 LMP IS UNKNOWN, STATES SHE WAS ON CONTROL WHEN SHE GOT DATING HAS BEEN BY ULTRASOUND PT STATES SHE HAS HAD THIS WITH HER LAST AND SHE WAS DEHYDRATED. PCP/OB-CLOSING SPECIALIST: DR. WIN Allergies and Home Medications Allergies Coded Allergies: Sulfa (Sulfonamide Antibiotics) (Verified Allergy, Intermediate, Rash, 12/01/19) Home Medications Levothyroxine Sodium 88 Mcg Tablet, 88 MCG PO DAILY, (Reported) Vit #76/Iron,Carb/FA 1 Each Tablet, 1 EACH PO DAILY, (Reported) Patient Home Medication List Home Medication List Reviewed: Yes Review of Systems Review of Systems Constitutional: no symptoms reported Respiratory: no symptoms reported Cardiovascular: no symptoms reported Gastrointestinal: see HPI, abdominal pain, diarrhea, nausea, vomiting Genitourinary: no symptoms reported : Yes Musculoskeletal: no symptoms reported Skin: no symptoms reported Psychiatric/Neurological: No Symptoms Reported Past Okbpbak-Vyvwkt-Yamrzo Hx Immunizations Up To Date PED Vaccines UTD: Yes Seasonal Allergies Seasonal Allergies: Yes Past Medical History Surgery/Hospitalization HX: + COVID-19 04/2021--NO TREATMENT, NO HOSPITALIZATION, MILD SYMTPOMS Respiratory: No Cardiac: No Neurological: No Sexually Transmitted Disease: No HIV/AIDS: No Genitourinary: No Gastrointestinal: No Musculoskeletal: No Endocrine: Yes Hypothyroidsim HEENT: No Cancer: No Psychosocial: No Integumentary: No Blood Disorders: No Adverse Reaction/Blood Tranf: No (n/a) Family Medical History Hypoglycemia 19 FATHER Physical Exam Vital Signs Vital Signs - First Documented 06/23/21 20:31 Pulse 110 Resp 20 B/P (MAP) 113/79 (90) Pulse Ox 98 O2 Delivery Room Air Capillary Refill : Height, Weight, BMI Height: '" Weight: lbs. oz. kg; 27.27 BMI Method: General Appearance: WD/WN, no apparent distress, thin Cardiovascular: regular rate, rhythm, no edema, no murmur Respiratory: normal breath sounds, no respiratory distress, no accessory muscle use Gastrointestinal: normal bowel sounds, non tender, soft, other (FUNDUS 3 FB'S BELOW UMBILICUS AND NON-TENDER. FHR 150'S) Back: no CVA tenderness Extremities: normal inspection, no pedal edema, normal capillary refill Neurologic/Psychiatric: gravity manager II-XII nml as tested, no motor/sensory deficits, alert, normal mood/affect, oriented x 3 Progress/Results/Core Measures Suspected Sepsis SIRS Temperature: Pulse: Respiratory Rate: Laboratory Tests 06/23/21 20:38: White Blood Count 8.6 Blood Pressure / Mean: Laboratory Tests 06/23/21 20:38: Creatinine 0.62, Platelet Count 247, Total Bilirubin 0.7 Results/Orders Lab Results Laboratory Tests Test 06/23/21 20:38 06/23/21 20:45 Range/Units White Blood Count 8.6 4.3-11.0 10^3/uL Red Blood Count 4.12 3.80-5.11 10^6/uL Hemoglobin 12.3 11.5-16.0 g/dL Hematocrit 36 35-52 % Mean Corpuscular Volume 87 80-99 fL Mean Corpuscular Hemoglobin 30 25-34 pg Mean Corpuscular Hemoglobin Concent 34 32-36 g/dL Red Cell Distribution Width 14.3 10.0-14.5 % Platelet Count 247 130-400 10^3/uL Mean Platelet Volume 9.0 9.0-12.2 fL Immature Granulocyte % (Auto) 1 % Neutrophils (%) (Auto) 79 H 42-75 % Lymphocytes (%) (Auto) 13 12-44 % Monocytes (%) (Auto) 7 0-12 % Eosinophils (%) (Auto) 1 0-10 % Basophils (%) (Auto) 1 0-10 % Neutrophils # (Auto) 6.9 1.8-7.8 10^3/uL Lymphocytes # (Auto) 1.1 1.0-4.0 10^3/uL Monocytes # (Auto) 0.6 0.0-1.0 10^3/uL Eosinophils # (Auto) 0.0 0.0-0.3 10^3/uL Basophils # (Auto) 0.0 0.0-0.1 10^3/uL Immature Granulocyte # (Auto) 0.1 0.0-0.1 10^3/uL Sodium Level 136 135-145 MMOL/L Potassium Level 3.5 L 3.6-5.0 MMOL/L Chloride Level 106 98-107 MMOL/L Carbon Dioxide Level 20 L 21-32 MMOL/L Anion Gap 10 5-14 MMOL/L Blood Urea Nitrogen 7 7-18 MG/DL Creatinine 0.62 0.60-1.30 MG/DL Estimat Glomerular Filtration Rate 115 BUN/Creatinine Ratio 11 Glucose Level 107 H 70-105 MG/DL Calcium Level 9.3 8.5-10.1 MG/DL Corrected Calcium 9.3 8.5-10.1 MG/DL Magnesium Level 1.6 1.6-2.4 MG/DL Total Bilirubin 0.7 0.1-1.0 MG/DL Aspartate Amino Transf (AST/SGOT) 17 5-34 U/L Alanine Aminotransferase (ALT/SGPT) 13 0-55 U/L Alkaline Phosphatase 37 L 40-136 U/L Total Protein 7.0 6.4-8.2 GM/DL Albumin 4.0 3.2-4.5 GM/DL Urine Color YELLOW Urine Clarity CLEAR Urine pH 5.5 5-9 Urine Specific Odd >=1.030 1.016-1.022 Urine Protein NEGATIVE NEGATIVE Urine Glucose (UA) NEGATIVE NEGATIVE Urine Ketones 3+ H NEGATIVE Urine Nitrite NEGATIVE NEGATIVE Urine Bilirubin NEGATIVE NEGATIVE Urine Urobilinogen 0.2 < = 1.0 MG/DL Urine Leukocyte Esterase NEGATIVE NEGATIVE Urine RBC (Auto) NEGATIVE NEGATIVE Urine RBC NONE /HPF Urine WBC NONE /HPF Urine Squamous Epithelial Cells 10-25 H /HPF Urine Crystals NONE /LPF Urine Bacteria TRACE /HPF Urine Casts NONE /LPF Urine Mucus MODERATE H /LPF Urine Culture Indicated NO My Orders Orders - AKUA KAUR DO Ed Iv/Invasive Line Start (06/23/21 20:35) Heart Tones (06/23/21 20:35) Monitor-Rhythm Ecg Trace Only (06/23/21 20:35) Cbc With Automated Diff (06/23/21 20:35) Comprehensive Metabolic Panel (06/23/21 20:35) Magnesium (06/23/21 20:35) Ua Culture If Indicated (06/23/21 20:35) Ed Iv/Invasive Line Start (06/23/21 20:35) Lactated Ringers (Lr 1000 Ml Iv Solution (06/23/21 20:45) Ed Iv/Invasive Line Start (06/23/21 21:11) Lactated Ringers (Lr 1000 Ml Iv Solution (06/23/21 21:15) Medications Given in ED Current Medications Medications Dose Ordered Sig/Christopher Route Start Time Stop Time Status Last Admin Dose Admin Lactated Ringer's 1,000 ml @ 0 mls/hr Q0M ONCE IV 06/23/21 20:45 06/23/21 20:46 DC 06/23/21 20:51 1,000 MLS/HR Lactated Ringer's 1,000 ml @ 0 mls/hr Q0M ONCE IV 06/23/21 21:15 06/23/21 21:16 DC 06/23/21 21:55 0 MLS/HR Vital Signs/I&O 06/23/21 06/23/21 20:31 22:25 Pulse 110 74 Resp 20 16 B/P (MAP) 113/79 (90) 115/68 Pulse Ox 98 100 O2 Delivery Room Air Capillary Refill : Progress Note : Progress Note GIVEN IV FLUIDS AND SYMPTOMS RESOLVED STATES SHE FEELS MUCH BETTER NO VOMITING OR DIARRHEA DURING ER STAY Departure Impression Primary Impression: 15 weeks gestation of Additional Impressions: contractions Uterine contractions Dehydration Disposition: 01 HOME, SELF-CARE Condition: Improved Departure-Patient Inst. Decision time for Depature: 21:15 Referrals: MARTHA WIN MD (PCP/Family) Primary Care Physician Patient Instructions: Dehydration, Adult ED, Stomach Pain in Early Add. Discharge Instructions: HOME, REST LOTS OF CLEAR LIQUIDS--WATER, BROTH, JELLO, GATORADE TYLENOL NEEDED FOR PAIN KEEP YOUR APPOINTMENT WITH DR. WIN TOMORROW, RETURN TO ER IF SYMPTOMS WORSEN All discharge instructions reviewed with patient and/or family. Voiced understanding. AKUA KAUR DO Jun 23, 2021 20:40
[2021-06-23 20:42] LABS: BASOPHILS % (AUTO) 1 % (0-10); EOSINOPHILS % (AUTO) 1 % (0-10); HEMATOCRIT 36 % (35-52); HEMOGLOBIN 12.3 g/dL (11.5-16.0); LYMPHOCYTES # (AUTO) 1.1 10^3/uL (1.0-4.0); LYMPHOCYTES % (AUTO) 13 % (12-44); MEAN CORPUSCULAR HEMOGLOBIN 30 pg (25-34); MEAN CORPUSCULAR HGB CONC 34 g/dL (32-36); MEAN CORPUSCULAR VOLUME 87 fL (80-99); MONOCYTES # (AUTO) 0.6 10^3/uL (0.0-1.0); MONOCYTES % (AUTO) 7 % (0-12); NEUTROPHILS # (AUTO) 6.9 10^3/uL (1.8-7.8); NEUTROPHILS % (AUTO) 79 % (42-75); PLATELET COUNT 247 10^3/uL (130-400); WHITE BLOOD COUNT 8.6 10^3/uL (4.3-11.0)
[2021-06-23] MEDS ORDERED: LACTATED RINGERS 1,000 ML IV ONE ×2 (20:45→21:15)
[2021-06-23 20:59] LABS: BILIRUBIN,URINE NEGATIVE (NEGATIVE); CLARITY,URINE CLEAR; COLOR,URINE YELLOW; GLUCOSE, URINE (UA) NEGATIVE (NEGATIVE); KETONES,URINE 3+ (NEGATIVE); LEUKOCYTE ESTERASE ,URINE NEGATIVE (NEGATIVE); NITRITE,URINE NEGATIVE (NEGATIVE); PH,URINE 5.5 (5-9); PROTEIN,URINE NEGATIVE (NEGATIVE)
[2021-06-23 21:02] LABS: BILIRUBIN,TOTAL 0.7 MG/DL (0.1-1.0); CALCIUM 9.3 MG/DL (8.5-10.1); CREATININE SERUM 0.62 MG/DL (0.60-1.30); MAGNESIUM 1.6 MG/DL (1.6-2.4); POTASSIUM 3.5 MMOL/L (3.6-5.0)
[2021-06-23 21:06] LABS: BACTERIA,URINE TRACE /HPF
[2021-06-23 22:25] VITALS: BP 115/68
== END 2021-06-23 22:25 | disposition home or self-care (01) ==
LOC: EDUNIT# 20:24 → ER 20:26
DX: O60.02 Preterm labor without delivery, second trimester (principal); E86.0 Dehydration; E03.9 Hypothyroidism, unspecified; Z79.890 Hormone replacement therapy; Z3A.15 15 weeks gestation of pregnancy
CPT/HCPCS: 36415; 80053; 81000; 83735; 85025; 93041

== ENCOUNTER → 2021-08-11 | Outpatient (CLI) | payer OTHER ==
--- NOTE | 2021-08-11 10:17 | Diagnostic Imaging Report ---
INDICATION: survey. TECHNIQUE: Multiple real-time grayscale images were obtained over the gravid uterus. COMPARISON: None FINDINGS: There is a single live fetus in a cephalic presentation. heart rate was recorded at 138 bpm. Placenta is posterior. No previa is detected. The amniotic fluid volume is normal. kidneys, bladder and stomach are unremarkable. brain is unremarkable. There is a 4 chamber heart. There is a 3 vessel cord with normal insertion. spine is unremarkable. Biometrical measurements are as follows: Biparietal 5.67 cm, age 23 weeks 3 days. Head circumference 20.88 cm, age 23 weeks 0 days. Abdominal circumference 17.46 cm, age 22 weeks 3 days. Femur length 3.79 cm, age 22 weeks 1 days. Sonographic estimate age: 22 weeks 6 days. Sonographic estimated date of delivery: 12/09/2021. Estimated Weight: 499 gm (+/- 73 gm). LMP percentile: 84%. heart rate: 138 beats per minute. number: 1 of 1. IMPRESSION: Single live IUP approximately 23 weeks gestational age with an estimated date of confinement sonographically of 12/09/2021. No complicating features are detected. Dictated by: Dictated on workstation # [id number]
== END ==
LOC: RAD FS 07:41
PROVIDERS: ATTEND Family Medicine
DX: Z34.82 Encounter for supervision of other normal pregnancy, second trimester (principal); Z3A.23 23 weeks gestation of pregnancy
CPT/HCPCS: 76805

== ENCOUNTER 2021-10-08 14:44 | Emergency (ER) | payer OTHER ==
[~2021-10-08] VITALS: Ht 170 cm; Wt 69.0 kg
[2021-10-08 15:02] VITALS: BP 111/68
--- NOTE | 2021-10-08 15:14 | ED Lower Extremity ---
General Chief Complaint: Lower Extremity Stated Complaint: RIGHT PAIN AND SWELLING IN RIGHT CALF/ 30 WKS PREG Nursing Triage Note: ARRIVED VIA AMB TO ROOM 07 WITH COMPLAINTS OF RIGHT LEG CALF SWELLING STARTING THIS AM. STATES SHE WAS AT [facility] THIS AM WHO TOLD HER THAT HER D-DIMER WAS HIGH AND SHE NEEDED TO HAVE A ULTRASOUND DONE ON IT. Source: patient Exam Limitations: no limitations History of Present Illness Date Seen by Provider: Oct 08, 2021 Time Seen by Provider: 15:11 Initial Comments To ER with right calf redness earlier this morning. She states that this area to the right calf got tender and swollen and red. She went to a primary care clinic in [facility] and had a CBC and a D-dimer done. The WBC, hemoglobin, platelet count were all within normal limits and she did show me these on her phone. The D-dimer was slightly elevated at 645 with cut off less than 600 being normal. No fevers no known injury to the calf. She is 30 weeks gestation. Onset: just prior to arrival Severity: moderate Pain/Injury Location: right other (calf) Modifying Factors: Worse With Movement Allergies and Home Medications Allergies Coded Allergies: Sulfa (Sulfonamide Antibiotics) (Verified Allergy, Intermediate, Rash, 12/01/19) Patient Home Medication List Home Medication List Reviewed: Yes Levothyroxine Sodium (Levothyroxine Sodium) 88 Mcg Tablet, 88 MCG PO DAILY, (Reported) Entered as Reported by: AYANA LLANOS on 01/27/20 1240 Vit #76/Iron,Carb/FA (Pnv 29-1 Tablet) 1 Each Tablet, 1 EACH PO DAILY, (Reported) Entered as Reported by: AYANA LLANOS on 01/27/20 1240 Review of Systems Constitutional: see HPI EENTM: see HPI Respiratory: no symptoms reported Genitourinary: no symptoms reported Musculoskeletal: no symptoms reported Skin: no symptoms reported Psychiatric/Neurological: No Symptoms Reported Past Ebeesxj-Atpacb-Josptl Hx Patient Social History Tobacco Use?: No Substance use?: No Alcohol Use?: No Immunizations Up To Date PED Vaccines UTD: Yes Seasonal Allergies Seasonal Allergies: Yes Past Medical History Surgery/Hospitalization HX: + COVID-19 04/2021--NO TREATMENT, NO HOSPITALIZATION, MILD SYMTPOMS Respiratory: No Cardiac: No Neurological: No Expected Date of Delivery: Dec 18, 2021 Sexually Transmitted Disease: No HIV/AIDS: No Genitourinary: No Gastrointestinal: No Musculoskeletal: No Endocrine: Yes Hypothyroidsim HEENT: No Cancer: No Psychosocial: No Integumentary: No Blood Disorders: No Adverse Reaction/Blood Tranf: No (n/a) Family Medical History Hypoglycemia 19 FATHER Physical Exam Vital Signs Vital Signs - First Documented 10/08/21 15:02 Temp 36.3 Pulse 96 Resp 16 B/P (MAP) 111/68 (82) Pulse Ox 98 O2 Delivery Room Air Capillary Refill : Less Than 3 Seconds Height, Weight, BMI Height: '" Weight: lbs. oz. kg; 23.00 BMI Method: General Appearance: WD/WN, no apparent distress Neck: non-tender, full range of motion Respiratory: no respiratory distress, no accessory muscle use Hips: bilateral hip non-tender, bilateral hip normal inspection, bilateral hip normal range of motion Legs: right leg pain, right leg soft tissue tenderness, right leg swelling, right leg other (There is some localized ecchymosis and induration to a tennis ball sized area to the posterior mid right calf. There is no erythema. This area is tender to palpation.There are a few varicose veins proximal to this area which she states have been present for a long time. ) Knees: bilateral knee non-tender, bilateral knee normal inspection, bilateral knee normal range of motion Ankles: bilateral ankle non-tender, bilateral ankle normal inspection, bilateral ankle normal range of motion Feet: bilateral foot non-tender, bilateral foot normal inspection, bilateral foot normal range of motion Neurologic/Psychiatric: alert, normal mood/affect, oriented x 3 Skin: normal color, warm/dry Progress/Results/Core Measures Results/Orders My Orders Orders - SHERRIE PAIGE APRN Us Venous Lower Ext Rt (10/08/21 15:04) Vital Signs/I&O 10/08/21 15:02 Temp 36.3 Pulse 96 Resp 16 B/P (MAP) 111/68 (82) Pulse Ox 98 O2 Delivery Room Air Blood Pressure Mean: 82 Departure Communication (Admissions) NAME: GERTRUDE BAHENA MED REC#: [id number] PT STATUS: REG ER : 1995 PHYSICIAN: SHERRIE PAIGE APRN ADMIT DATE: 10/08/21/ER Signed Date of Exam:10/08/21 US VENOUS LOWER EXT RT PROCEDURE: US right lower extremity venous. TECHNIQUE: Multiple real-time grayscale images were obtained over the right lower extremity in various projections. Additional spectral analysis and color Doppler duplex images were also obtained. INDICATION: Right leg pain. Comparison: Non available. Findings: The right common femoral, femoral and popliteal veins are patent by color doppler imaging and without DVT. Visualized proximal aspects of the greater saphenous, deep femoral, posterior tibial and peroneal veins are also patent. All of the evaluated deep venous structures demonstrate normal compressibility and waveform augmentation where applicable. The superficial lesser saphenous vein has very slow flow present and is dilated. Impression: No right lower extremity deep venous thrombosis (DVT). Dictated by: Dictated on workstation # [id number] Dict: 10/08/21 1554 Trans: 10/08/21 1555 [facility] [id number] Interpreted by: CORTNEY BOGGS MD Electronically signed by: CORTNEY BOGGS MD 10/08/21 1555 Impression Primary Impression: Hematoma Disposition: 01 HOME, SELF-CARE Condition: Stable Departure-Patient Inst. Decision time for Depature: 15:14 Referrals: MARTHA WIN MD (PCP/Family) Primary Care Physician Patient Instructions: HEMATOMA, Varicose Veins (DC) Add. Discharge Instructions: . Wear the compression stockings for the next few days on during the day off at night. Return to ER for any concerns. All discharge instructions reviewed with patient and/or family. Voiced understanding. SHERRIE PAIGE APRN Oct 08, 2021 15:14
--- NOTE | 2021-10-08 15:57 | Diagnostic Imaging Report ---
PROCEDURE: US right lower extremity venous. TECHNIQUE: Multiple real-time grayscale images were obtained over the right lower extremity in various projections. Additional spectral analysis and color Doppler duplex images were also obtained. INDICATION: Right leg pain. Comparison: Non available. Findings: The right common femoral, femoral and popliteal veins are patent by color doppler imaging and without DVT. Visualized proximal aspects of the greater saphenous, deep femoral, posterior tibial and peroneal veins are also patent. All of the evaluated deep venous structures demonstrate normal compressibility and waveform augmentation where applicable. The superficial lesser saphenous vein has very slow flow present and is dilated. Impression: No right lower extremity deep venous thrombosis (DVT). Dictated by: Dictated on workstation # [id number]
== END 2021-10-08 16:07 | disposition home or self-care (01) ==
LOC: EDUNIT# 14:44 → ER 14:47
DX: O9A.213 Injury, poisoning and certain other consequences of external causes complicating pregnancy, third trimester (principal); S80.11XA Contusion of right lower leg, initial encounter; E03.9 Hypothyroidism, unspecified; Z79.890 Hormone replacement therapy; Z3A.30 30 weeks gestation of pregnancy; X58.XXXA Exposure to other specified factors, initial encounter

== ENCOUNTER → 2021-11-16 | Outpatient (CLI) | payer OTHER | LOC: LABNPT 15:09 | PROVIDERS: ATTEND Family Medicine | DX: Z34.93 Encounter for supervision of normal pregnancy, unspecified, third trimester (principal); Z3A.35 35 weeks gestation of pregnancy | CPT/HCPCS: 87081 ==

== ENCOUNTER 2021-12-12 06:35 | Inpatient (IN) | payer BC, MEDICAID ==
[~2021-12-12] VITALS: Ht 170.2 cm; Wt 72.8 kg
[2021-12-12] VITALS (52 sets, daily range): BP systolic 102–138; BP diastolic 54–82
[2021-12-12] MEDS ORDERED: D5 LR IV SOLUTION 1,000 ML IV SCH (07:30)
--- NOTE | 2021-12-12 07:39 | History & Physical-OB ---
OB - Chief Complaint & HPI Date/Time Date of Admission: Date of Admission: Dec 12, 2021 at 06:35 Date seen by a Provider: Dec 12, 2021 Time Seen by a Provider: 07:35 Chief Complaint/History OB-Reason for Admission/Chief: Induction of Labor Hx : 5 Hx Para: 2 Expected Date of Delivery: Dec 18, 2021 Gestational Age in Weeks: 39 Gestational Age in Days: 1 Admission Nurse Assessment Rev: Yes History of Labs GBS neg Allergies and Home Medications Allergies Coded Allergies: Sulfa (Sulfonamide Antibiotics) (Verified Allergy, Intermediate, Rash, 12/01/19) Patient Home Medication List Home Medication List Reviewed: Yes Levothyroxine Sodium (Levothyroxine Sodium) 88 Mcg Tablet, 88 MCG PO DAILY, (Reported) Entered as Reported by: AYANA LLANOS on 01/27/20 1240 Vit #76/Iron,Carb/FA (Pnv 29-1 Tablet) 1 Each Tablet, 1 EACH PO DAILY, (Reported) Entered as Reported by: AYANA LLANOS on 01/27/20 1240 OB - History Hx of Present Care: Yes Ultrasounds: Normal mid trimester US Obstetrical Complications: None Medical Complications: None Delivery History Adverse Rxn to Tranfusion: No (n/a) Patient Past Medical History hypothyroidism Social History/Family History 2nd Hand Smoke Exposure: No Immunizations Hepatitis A: Yes Hepatitis B: Yes OB - Admission Exam Physical Exam HEENT: NCAT Heart: Rhythm Normal Lungs: Clear Abdomen: Gravid Extremities: Normal Reflexes: Normal Cervical Dilatation: 3cm Effacement: 75% Station: -1 Membranes: Intact Heart Rate: 130's Accelerations: Accelerations Present Decelerations: No Decelerations Short Term Variability: Present Doll Wig Hackler Variability: Average (6-25) Contractions on Admission: 6-10 Minutes Apart Intensity: Mild Ayala Scoring Tool (Modified) Dilation (cm): 3-4cm (2) Effacement (%): 51-79% (2) Descent/Station: -1,0 (2) Cervix Consistency: Soft (2) Cervix Position: Anterior (2) Add 1 point for: Each previous vaginal delivery (1) Ayala Score: 12 OB - Assessment/Plan/Diagnosis Assessment Assessment: induction of labor Admission Dx 26 yo @ 39 weeks IOL GBS neg Admission Status: Inpatient Order (span 2 midnights) Reason for Inpatient Admission: IOL at 39 weeks Plan Plan: Induction Induction Method: AASHISH REZA DO Dec 12, 2021 07:39
[2021-12-12 07:49] LABS: BASOPHILS % (AUTO) 0 % (0-10); EOSINOPHILS # (AUTO) 0.1 10^3/uL (0.0-0.3); EOSINOPHILS % (AUTO) 1 % (0-10); HEMATOCRIT 36 % (35-52); HEMOGLOBIN 12.3 g/dL (11.5-16.0); LYMPHOCYTES # (AUTO) 1.7 10^3/uL (1.0-4.0); LYMPHOCYTES % (AUTO) 19 % (12-44); MEAN CORPUSCULAR HEMOGLOBIN 30 pg (25-34); MEAN CORPUSCULAR HGB CONC 34 g/dL (32-36); MEAN CORPUSCULAR VOLUME 89 fL (80-99); MEAN PLATELET VOLUME 10.2 fL (9.0-12.2); MONOCYTES # (AUTO) 0.7 10^3/uL (0.0-1.0); MONOCYTES % (AUTO) 8 % (0-12); NEUTROPHILS # (AUTO) 6.7 10^3/uL (1.8-7.8); NEUTROPHILS % (AUTO) 71 % (42-75); PLATELET COUNT 216 10^3/uL (130-400); WHITE BLOOD COUNT 9.4 10^3/uL (4.3-11.0)
[2021-12-12] MEDS ORDERED: OXYTOCIN PRE-MIX DRIP 500 ML IV SCH ×2 (08:30→16:30)
[2021-12-12 09:45] LABS: BILIRUBIN,URINE NEGATIVE (NEGATIVE); CLARITY,URINE CLEAR; COLOR,URINE AMBER; GLUCOSE, URINE (UA) NEGATIVE (NEGATIVE); KETONES,URINE NEGATIVE (NEGATIVE); LEUKOCYTE ESTERASE ,URINE TRACE (NEGATIVE); NITRITE,URINE NEGATIVE (NEGATIVE); PH,URINE 6.5 (5-9); PROTEIN,URINE NEGATIVE (NEGATIVE)
[2021-12-12 10:00] LABS: BACTERIA,URINE FEW /HPF
[2021-12-12] MEDS ORDERED: fentaNYL 2 mcg/ml BUPIVA 0.125 100 ML ONE (11:34)
[2021-12-12] MEDS ORDERED: BUPIVACAINE 0.25% 30 ML (SENSORCAINE) VIAL ONE (12:11)
[2021-12-12] MEDS ORDERED: fentaNYL INJ 100 MCG/2 ML AMP ONE (12:12)
[2021-12-12] MEDS ORDERED: NALOXONE 0.4 MG/ML 1 ML (NARCAN) VIAL IV PRN ×2 (12:45→16:30)
[2021-12-12] MEDS ORDERED: fentaNYL 2 mcg/ml BUPIVA 0.125 100 ML IV SCH (12:45)
[2021-12-12] MEDS ORDERED: LACTATED RINGERS 1,000 ML IV ONE (12:45)
[2021-12-12] MEDS ORDERED: CATHETER FLUSH 10 ML SYR IV PRN (12:45)
[2021-12-12] MEDS ORDERED: CATHETER FLUSH 10 ML SYR IV SCH ×2 (14:00→22:00)
[2021-12-12] MEDS ORDERED: LIDOCAINE 1% INJ 20 ML VIAL ONE (15:49)
--- NOTE | 2021-12-12 16:23 | OB Labor & Delivery Record ---
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 Variability: Average (6-10) Short Term Variability: Present Presentation: Vertex Vital Signs VS - Last 72 Hours, by Label 12/12/21 12/12/21 12/12/21 12/12/21 08:02 08:41 09:54 10:10 Temp 36.8 36.8 36.8 Pulse 65 65 63 61 Resp 18 18 18 18 B/P (MAP) 109/67 (81) 111/69 (83) 107/60 (76) Pulse Ox 97 O2 Delivery Room Air Room Air Room Air Room Air 12/12/21 12/12/21 12/12/21 12/12/21 10:26 10:42 10:54 11:10 Temp 36.7 Pulse 67 74 63 67 Resp 18 18 18 18 B/P (MAP) 111/75 (87) 119/70 (86) 102/70 (81) 103/62 (76) O2 Delivery Room Air Room Air Room Air Room Air 12/12/21 12/12/21 12/12/21 12/12/21 11:26 11:41 11:55 12:10 Temp 36.3 Pulse 65 71 64 60 Resp 18 18 18 18 B/P (MAP) 109/67 (81) 109/72 (84) 122/80 (94) 116/75 (89) O2 Delivery Room Air Room Air Room Air Room Air 12/12/21 12/12/21 12/12/21 12/12/21 12:13 12:16 12:27 12:30 Pulse 72 68 68 68 Resp 18 18 18 18 B/P (MAP) 138/77 (97) 128/82 (97) 119/69 (86) 113/65 (81) Pulse Ox 100 99 99 100 O2 Delivery Room Air Room Air Room Air Room Air 2/1412/12/21 12/12/21 12/12/21 12:33 12:36 12:39 12:43 Pulse 66 68 70 73 Resp 18 18 18 18 B/P (MAP) 109/60 (76) 110/60 (77) 107/59 (75) 107/63 (78) Pulse Ox 100 O2 Delivery Room Air Room Air Room Air Room Air 12/12/21 12/12/21 12/12/21 12/12/21 12:46 12:49 12:52 12:55 Pulse 68 72 64 73 Resp 18 18 18 18 B/P (MAP) 111/66 (81) 109/67 (81) 111/67 (82) 107/65 (79) O2 Delivery Room Air Room Air Room Air Room Air 12/12/21 12/12/21 12/12/21 12/12/21 12:58 13:01 13:04 13:07 Pulse 76 65 64 61 Resp 18 18 18 18 B/P (MAP) 108/66 (80) 111/67 (82) 107/68 (81) 114/69 (84) O2 Delivery Room Air Room Air Room Air Room Air 12/12/21 12/12/21 12/12/21 12/12/21 13:10 13:13 13:16 13:19 Pulse 56 60 56 65 Resp 18 18 18 18 B/P (MAP) 108/63 (78) 108/64 (79) 110/65 (80) 112/69 (83) O2 Delivery Room Air Room Air Room Air Room Air 12/12/21 12/12/21 12/12/21 12/12/21 13:22 13:29 13:40 13:53 Temp 36.6 Pulse 55 66 55 Resp 18 18 18 B/P (MAP) 109/61 (77) 109/62 (78) 107/59 (75) O2 Delivery Room Air Room Air Room Air 12/12/21 12/12/21 12/12/21 12/12/21 14:09 14:23 14:38 14:55 Temp 37.0 Pulse 51 55 59 68 Resp 18 18 18 18 B/P (MAP) 103/62 (76) 107/60 (76) 109/55 (73) 106/65 (79) O2 Delivery Room Air Room Air Room Air Room Air 12/12/21 15:08 Pulse 61 Resp 18 B/P (MAP) 105/66 (79) O2 Delivery Room Air Rupture of Membranes Spontaneous Ruture of Membrane: Yes Amniotic Membrane Rupture Time: 0817 Amniotic Membrane Fluid Desc.: Clear Vaginal Bleeding Description: Normal Show Induction/Anesthesia Epidural Cath Placement - Time: 1224 Progress/Notes Patient admitted for IOL. AROM and Pitocin augmentation. Epidural received and patient progressed to complete and +1 station. L&D Stage2 Stage Two Stage II Date: Dec 12, 2021 Monitors and Tracing Monitor Mode: External Heart Rate: 105 Position: Right Occiput Anterior Presentation: Vertex Cord Descript/Complications Cord Vessel Description: 3 Vessels Complications nuchal cord x 1 reduced Delivery Type Delivery Method: Spontaneous Vaginal Anterior Shoulder: Left Episiotomy/Perineal Laceration Laceraction(s)/Extensions: No Condition of Infant Delivery 1 minute Comment: 8 5 minute Comment: 9 Notes Live male weight pending. Condition of Condition of Infant: Living Exam: No Observed Abnormalities Resuscitation Resuscitation: N/A - Spontaneous Resp L&D Stage3 Stage Three Stage III Date: Dec 12, 2021 Pictocin Pitocin Administration mu/min: 8 Pitocin ml/hr: 8 Pitocin Administration Comment: 30 mu wide open after delivery of placenta Placenta Delivery Placenta Delivery: Spontaneous Delivery Summary Summary Estimated blood loss (mL): 250 Attending at delivery: Aashish Dorman DO Condition of Delivery Examined: Cervix Examined, Uterus Explored Post Hemorrhage: No Condition of Mother stable Condition of (s) stable AASHISH DORMAN DO Dec 12, 2021 16:23
[2021-12-12] MEDS ORDERED: HYDROcodone/APAP 5 MG/325 MG (LORTAB) TAB PO PRN (16:30)
[2021-12-12] MEDS ORDERED: BENZOCAINE/MENTHOL (DERMOPLAST) 56 ML CAN TP PRN (16:30)
[2021-12-12] MEDS ORDERED: WITCH HAZEL(TUCKS) 40 EA JAR TOP PRN (16:30)
[2021-12-12] MEDS ORDERED: DIBUCAINE 1% OINTMENT 30 GM TUBE TOP PRN (16:30)
[2021-12-12] MEDS ORDERED: MEASLES,MUMPS,RUBELLA 1 EA INJ SQ ONE (16:30)
[2021-12-12] MEDS ORDERED: TETANUS,DIPTH,PERTUSS P/F (BOOSTRIX) 0.5 ML VIAL IM ONE (16:30)
[2021-12-12] MEDS: IBUPROFEN 600 MG (MOTRIN) TAB PO SCH (16:53)
[2021-12-12] MEDS: DOCUSATE SODIUM 100 MG (COLACE) CAP PO SCH (21:24)
[2021-12-13 00:01] VITALS: BP 94/52
[2021-12-13] MEDS: IBUPROFEN 600 MG (MOTRIN) TAB PO SCH ×4 (00:01→17:55)
[2021-12-13 04:00] VITALS: BP 108/72
[2021-12-13 07:49] LABS: BASOPHILS # (AUTO) 0.1 10^3/uL (0.0-0.1); BASOPHILS % (AUTO) 0 % (0-10); EOSINOPHILS # (AUTO) 0.2 10^3/uL (0.0-0.3); EOSINOPHILS % (AUTO) 2 % (0-10); HEMATOCRIT 34 % (35-52); HEMOGLOBIN 11.2 g/dL (11.5-16.0); LYMPHOCYTES # (AUTO) 1.6 10^3/uL (1.0-4.0); LYMPHOCYTES % (AUTO) 14 % (12-44); MEAN CORPUSCULAR HEMOGLOBIN 30 pg (25-34); MEAN CORPUSCULAR HGB CONC 33 g/dL (32-36); MEAN CORPUSCULAR VOLUME 91 fL (80-99); MEAN PLATELET VOLUME 10.4 fL (9.0-12.2); MONOCYTES # (AUTO) 0.7 10^3/uL (0.0-1.0); MONOCYTES % (AUTO) 6 % (0-12); NEUTROPHILS # (AUTO) 8.7 10^3/uL (1.8-7.8); NEUTROPHILS % (AUTO) 77 % (42-75); PLATELET COUNT 166 10^3/uL (130-400); WHITE BLOOD COUNT 11.3 10^3/uL (4.3-11.0)
[2021-12-13 09:00] VITALS: BP 109/72
[2021-12-13] MEDS ORDERED: FERROUS SULF 325 MG (IRON) TAB PO SCH (09:00)
[2021-12-13] MEDS: DOCUSATE SODIUM 100 MG (COLACE) CAP PO SCH (09:15)
--- NOTE | 2021-12-13 09:40 | Anesthesia-Regional Post-Op ---
Regional Patient Condition Mental Status: Alert, Oriented x3 Circulation: Same as Pre-Op Headache: Absent Sensation: Full Recovery Motor Block: Absent Post Op Complications Complications None Follow Up Care/Instructions Patient Instructions None needed. Anesthesia/Patient Condition Patient is doing well, no complaints, stable vital signs, no apparent adverse anesthesia problems. No complications reported per nursing. MARKO CORNELIUS CRNA Dec 13, 2021 09:40
[2021-12-13] MEDS ORDERED: DIBU30OI TOP (10:44)
[2021-12-13] MEDS ORDERED: DOCU100C37 PO (10:44)
[2021-12-13] MEDS ORDERED: BENZ78AE5 TP (10:44)
[2021-12-13] MEDS ORDERED: IBUP-844 PO (10:44)
[2021-12-13] MEDS ORDERED: ACHD5005 PO (10:44)
--- NOTE | 2021-12-13 10:45 | Discharge Inst-Women's Service ---
Discharge Inst-Women's Serv Depart Medication/Instructions New, Converted or Re-Newed RX: Transmitted to Pharmacy Consults/Follow Up Additional Follow Up: Yes Orders/Referrals 6wk PP appt Activity Activity: Activity as Tolerated Driving Instructions: No Driving for 1 Week NO SMOKING: NO SMOKING Nothing Inside Vagina: No Douching, No Latrobe, No Tampons Diet Discharge Diet: No Restrictions Symptoms to Report to : Bleeding Excessive, Pain Increased, Fever Over 101 Degrees F, Vaginal Bleeding Increase For Any Problems or Questions: Contact Your Physician PRATIK ROJAS APRN Dec 13, 2021 10:45
--- NOTE | 2021-12-13 10:47 | Postpartum Progress Note ---
Note Note Day # 1 Subjective: Patient is without complaints. Ambulating, voiding. Tolerating a regular diet without nausea or vomiting. Normal lochia. Pain is well controlled with oral pain medications. Objective: Physical Exam: General - Alert and oriented, no apparent distress Abdomen - Soft, appropriately tender to palpation, non-distended, fundus firm at umbilicus Extremities - no edema, negative Rose Mary's bilaterally Assessment: Post- day # 1, status post vaginal delivery. Recovering well, hemodynamically stable Acute blood loss anemia Plan: Routine care. Encourage breast feeding. Encourage ambulation. Ferrous sulfate supplementation. Plan for discharge this evening or tomorrow AM pending baby's DC Vitals - Labs Vital Signs - I&O Vital Signs Date Time Temp Pulse Resp B/P (MAP) Pulse Ox O2 Delivery O2 Flow Rate FiO2 12/13/21 09:00 36.3 70 18 109/72 (84) 100 Room Air 12/13/21 04:00 36.4 56 16 108/72 (84) 98 Room Air 12/13/21 00:01 36.2 60 18 94/52 (66) 98 Room Air 12/12/21 20:33 36.7 65 18 102/64 (77) Room Air 12/12/21 18:22 37.0 71 18 104/64 (77) Room Air 12/12/21 18:07 65 18 105/66 (79) Room Air 12/12/21 17:52 69 18 108/66 (80) Room Air 12/12/21 17:37 65 18 115/67 (83) Room Air 12/12/21 17:22 37.4 67 18 111/66 (81) Room Air 12/12/21 17:07 66 18 112/60 (77) Room Air 12/12/21 16:53 76 18 123/60 (81) Room Air 12/12/21 16:38 76 18 118/59 (78) Room Air 12/12/21 16:29 78 18 108/54 (72) Room Air 12/12/21 16:08 95 18 137/68 (91) Room Air 12/12/21 15:23 75 18 123/75 (91) 90 Room Air 12/12/21 15:08 61 18 105/66 (79) Room Air 12/12/21 14:55 37.0 68 18 106/65 (79) Room Air 12/12/21 14:38 59 18 109/55 (73) Room Air 12/12/21 14:23 55 18 107/60 (76) Room Air 12/12/21 14:09 51 18 103/62 (76) Room Air 12/12/21 13:53 55 18 107/59 (75) Room Air 12/12/21 13:40 66 18 109/62 (78) Room Air 12/12/21 13:29 36.6 12/12/21 13:22 55 18 109/61 (77) Room Air 12/12/21 13:19 65 18 112/69 (83) Room Air 12/12/21 13:16 56 18 110/65 (80) Room Air 12/12/21 13:13 60 18 108/64 (79) Room Air 12/12/21 13:10 56 18 108/63 (78) Room Air 12/12/21 13:07 61 18 114/69 (84) Room Air 12/12/21 13:04 64 18 107/68 (81) Room Air 12/12/21 13:01 65 18 111/67 (82) Room Air 12/12/21 12:58 76 18 108/66 (80) Room Air 12/12/21 12:55 73 18 107/65 (79) Room Air 12/12/21 12:52 64 18 111/67 (82) Room Air 12/12/21 12:49 72 18 109/67 (81) Room Air 12/12/21 12:46 68 18 111/66 (81) Room Air 12/12/21 12:43 73 18 107/63 (78) Room Air 12/12/21 12:39 70 18 107/59 (75) Room Air 12/12/21 12:36 68 18 110/60 (77) Room Air 12/12/21 12:33 66 18 109/60 (76) 100 Room Air 12/12/21 12:30 68 18 113/65 (81) 100 Room Air 12/12/21 12:27 68 18 119/69 (86) 99 Room Air 12/12/21 12:16 68 18 128/82 (97) 99 Room Air 12/12/21 12:13 72 18 138/77 (97) 100 Room Air 12/12/21 12:10 36.3 60 18 116/75 (89) Room Air 12/12/21 11:55 64 18 122/80 (94) Room Air 12/12/21 11:41 71 18 109/72 (84) Room Air 12/12/21 11:26 65 18 109/67 (81) Room Air 12/12/21 11:10 67 18 103/62 (76) Room Air 12/12/21 10:54 63 18 102/70 (81) Room Air I & O 12/13/21 07:00 Intake Total 3000 ml Balance 3000 ml Labs Laboratory Tests 12/13/21 07:33: White Blood Count 11.3H, Red Blood Count 3.69L, Hemoglobin 11.2L, Hematocrit 34L , Mean Corpuscular Volume 91, Mean Corpuscular Hemoglobin 30, Mean Corpuscular Hemoglobin Concent 33, Red Cell Distribution Width 14.7H, Platelet Count 166, Mean Platelet Volume 10.4, Immature Granulocyte % (Auto) 1, Neutrophils (%) (Auto) 77H, Lymphocytes (%) (Auto) 14, Monocytes (%) (Auto) 6, Eosinophils (%) (Auto) 2, Basophils (%) (Auto) 0, Neutrophils # (Auto) 8.7H, Lymphocytes # (Auto) 1.6, Monocytes # (Auto) 0.7, Eosinophils # (Auto) 0.2, Basophils # (Auto) 0.1, Immature Granulocyte # (Auto) 0.1 PRATIK ROJAS APRN Dec 13, 2021 10:47
[2021-12-13 12:00] VITALS: BP 114/66
[2021-12-13 16:30] VITALS: BP 108/55
[2021-12-13 18:15] VITALS: BP 108/55
== END 2021-12-13 18:15 | disposition home or self-care (01) | DRG 806 ==
LOC: LDRP 06:35
PROVIDERS: ADMIT Obstetrics & Gynecology; ATTEND Obstetrics & Gynecology
PROC: 10E0XZZ Delivery of Products of Conception, External Approach (ICD-10-PCS; principal; 2021-12-12)
PROC: 10907ZC Drainage of Amniotic Fluid, Therapeutic from Products of Conception, Via Natural or Artificial Opening (ICD-10-PCS; 2021-12-12)
DX: O99.284 Endocrine, nutritional and metabolic diseases complicating childbirth (principal); D62 Acute posthemorrhagic anemia; Z37.0 Single live birth; Z3A.39 39 weeks gestation of pregnancy; O90.81 Anemia of the puerperium; E03.9 Hypothyroidism, unspecified; Z79.890 Hormone replacement therapy
CPT/HCPCS: 36415; 81000; 85025; 86850; 86900; 86901; 87077; 87088